=== PATIENT | female | born 1975 | race Two or more races ===

== ENCOUNTER 2018-02-20 13:27 | Observation (INO) | payer OTHER ==
[~2018-02-20] VITALS: Ht 157.5 cm; Wt 72.1 kg
[2018-02-20] MEDS ORDERED: ACETAMINOPHEN 500MG TABLET PO ONE (14:00)
== END 2018-02-20 18:13 | disposition home or self-care (01) ==
LOC: L&D 13:27
PROVIDERS: ADMIT Specialist; ATTEND Specialist
DX: O26.893 Other specified pregnancy related conditions, third trimester (principal); R10.30 Lower abdominal pain, unspecified; M54.9 Dorsalgia, unspecified; O09.523 Supervision of elderly multigravida, third trimester; Z3A.34 34 weeks gestation of pregnancy
CPT/HCPCS: 76805; 76818; G0378